=== PATIENT | male | born 1995 | race Caucasian/White ===

== ENCOUNTER 2020-12-05 16:42 | Emergency (ER) | payer OTHER ==
[~2020-12-05] VITALS: Ht 180.3 cm; Wt 76.5 kg
--- NOTE | 2020-12-05 17:28 | PHYS DOC ---
General Adult EDM: Chief Complaint: CHEST PAIN HPI: HPI: Patient is a 24-year-old male who presents to the emergency department for chest pain that started at 1230 today while at work. He stated that he was short of breath with the chest pain lasted approximately 30 minutes to 1 hour. It was midsternal and stabbing. It did not radiate. It is worse with movement. He states that he does not have any chest pain currently. He denies shortness of breath, nausea, vomiting, dizziness or lightheadedness, cough, fever. Patient was seen at Dr. Mujica's office and they sent him to the emergency department for evaluation and also notified him that his blood pressure was high. Patient has on a Holter monitor placed by Dr. Mujica for which he states is for his hypertension so that they can manage his medications better. Patient has a history of cardiomegaly and hypertension but does not take any medications currently. (VICKIE SYED APRN) Review of Systems: Review of Systems: 14 body systems of the review of systems have been reviewed. See HPI for pertinent positive and negative responses, otherwise all other systems are negative, nonpertinent or noncontributory (VICKIE SYED APRN) Physical Exam: PE: Constitutional: Well developed, well nourished, no acute distress, non-toxic appearance. [] HENT: Normocephalic, atraumatic Eyes: PERRL, EOMI, conjunctiva normal, no discharge. [] Neck: Normal range of motion, no stridor Cardiovascular:Heart rate regular rhythm, no murmur [] Lungs & Thorax: Bilateral breath sounds clear to auscultation [] Abdomen: Bowel sounds normal, soft, no tenderness, no masses, no pulsatile masses. [] Skin: Warm, dry, no erythema, no rash. [] Back:Normal ROM Extremities: No tenderness, no cyanosis, no clubbing, ROM intact, no edema. [] Neurologic: Alert and oriented X 3, normal motor function, normal sensory function, no focal deficits noted. [] Psychologic: Affect normal, judgement normal, mood normal. [] (VICKIE SYED APRN) Current Patient Data: Labs: Laboratory Tests Test 12/05/20 17:56 White Blood Count 14.7 x10^3/uL Red Blood Count 5.81 x10^6/uL Hemoglobin 16.5 g/dL Hematocrit 49.8 % Mean Corpuscular Volume 86 fL Mean Corpuscular Hemoglobin 29 pg Mean Corpuscular Hemoglobin Concent 33 g/dL Red Cell Distribution Width 14.1 % Platelet Count 211 x10^3/uL Neutrophils (%) (Auto) 80 % Lymphocytes (%) (Auto) 10 % Monocytes (%) (Auto) 10 % Eosinophils (%) (Auto) 0 % Basophils (%) (Auto) 0 % Neutrophils # (Auto) 11.7 x10^3uL Lymphocytes # (Auto) 1.5 x10^3/uL Monocytes # (Auto) 1.4 x10^3/uL Eosinophils # (Auto) 0.0 x10^3/uL Basophils # (Auto) 0.0 x10^3/uL Sodium Level 142 mmol/L Potassium Level 3.7 mmol/L Chloride Level 105 mmol/L Carbon Dioxide Level 24 mmol/L Anion Gap 13 Blood Urea Nitrogen 17 mg/dL Creatinine 0.9 mg/dL Estimated GFR (Cockcroft-Gault) 103.7 BUN/Creatinine Ratio 19 Glucose Level 93 mg/dL Calcium Level 9.8 mg/dL Total Bilirubin 0.4 mg/dL Aspartate Amino Transf (AST/SGOT) 16 U/L Alanine Aminotransferase (ALT/SGPT) 24 U/L Alkaline Phosphatase 52 U/L Troponin I Quantitative < 0.017 ng/mL Total Protein 8.2 g/dL Albumin 4.9 g/dL Albumin/Globulin Ratio 1.5 Vital Signs: Vital Signs Date Time Temp Pulse Resp B/P (MAP) Pulse Ox O2 Delivery O2 Flow Rate FiO2 12/05/20 17:00 99.3 94 15 155/92 (113) 98 Room Air (VICKIE SYED [employer]) EKG: EKG: EKG performed by ER staff at 1650 shows sinus rhythm, no STEMI read by Dr. Page at 1655 [] (VICKIE SYED APRN) Radiology/Procedures: Radiology/Procedures: []PROCEDURE: PORTABLE CHEST 1V EXAM: AP View of the chest DATE: 12/05/2020 5:26 PM INDICATION: Reason: CHEST PAIN / Spl. Instructions: / History: COMPARISON: No Prior FINDINGS: The heart is not enlarged. Mediastinal and hilar contours are normal. Patchy opacities peripheral left lower lung and right lung base. No pleural effusion or pneumothorax. IMPRESSION: Bilateral parenchymal opacities likely consolidative process such as pneumonia. Imaging follow-up to resolution is recommended. Electronically signed by: Abdulaziz Linares MD (12/05/2020 5:36 PM) [facility] DICTATED AND SIGNED BY: ABDULAZIZ LINARES MD DATE: 12/05/20 5502 CC: EMERGENCY,DEPARTMENT; VICKIE SYED APRN; ROSIBEL MUJICA MD ~MTH0 0 (VICKIE SYED APRN) Heart Score: C/O Chest Pain: Yes HEART Score for Chest Pain: HEART Score for Chest Pain Response (Comments) Value History Moderately Suspicious 1 ECG Normal 0 Age < 45 0 Risk Factors 1 or 2 Risk Factors 1 Troponin < Normal Limit 0 Total 2 Risk Factors: Risk Factors: DM, Current or recent (<one month) smoker, HTN, HLP, family history of CAD, obesity. Risk Scores: Score 0 - 3: 2.5% MACE over next 6 weeks - Discharge Home Score 4 - 6: 20.3% MACE over next 6 weeks - Admit for Clinical Observation Score 7 - 10: 72.7% MACE over next 6 weeks - Early Invasive Strategies (VICKIE SYED APRN) Course & Med Decision Making: Course & Med Decision Making Pertinent Labs and Imaging studies reviewed. (See chart for details) presents to the emergency department for chest pain. Work-up in the ER consisted of blood work, EKG, chest x-ray. Patient is not having any pain while in the ER. Patient was noted to have leukocytosis with a white blood cell count of 14.7. His chest x-ray showed bilateral lung base pneumonia. His troponin was negative, negative CMP. His heart score is 2. Patient be treated with antibiotics for his pneumonia. His heart rate is regular rate and his blood pressure is 160/94. Patient advised to follow-up with his primary care provider. I discussed with patient all findings and diagnostic testing as well as the need to follow-up with PCP for further evaluation and treatment or return to the ER if any new or worsening symptoms. Strict return precautions were also discussed at length. Patient voiced understanding and agreement with the plan. Patient is hemodynamically stable at the time of disposition. (VICKIE SYED APRN) Dragon Disclaimer: Dragon Disclaimer: This electronic medical record was generated, in whole or in part, using a voice recognition dictation system. (VICKIE SYED APRN) Attending Co-Sign The patient was seen and interviewed as well as examined at the bedside. The chart was reviewed. The case was discussed. Agree with the plan of care. (BELKIS BRANNON DO) Departure Departure: Impression: Primary Impression: Pneumonia Qualified Codes: J18.9 - Pneumonia, unspecified organism Disposition: HOME / SELF CARE / HOMELESS Condition: GOOD Referrals: ROSIBEL MUJICA MD (PCP) Patient Instructions: Chest Pain (Nonspecific), Pneumonia, Adult Additional Instructions: You were seen in the emergency department today for chest pain. Your reported resolution of your chest pain upon ER arrival. At this time, your evaluation in the ER did not indicate that you are currently having acute coronary syndrome. Your blood work was unremarkable other than an elevated white blood cell count due to your pneumonia that was seen on your chest x-ray. You will be treated with an antibiotic and you were given your first dose in the ER. Please start and finish it completely. Please follow-up with Dr. Mujica tomorrow regarding your ER visit. Return to the emergency department if you develop chest pain, shortness of breath, nausea or vomiting, dizziness or lightheadedness, high fe vers refractory to treatment. EMERGENCY DEPARTMENT GENERAL DISCHARGE INSTRUCTIONS Thank you for coming to [facility] (ED) today and trusting us with you care. We trust that you had a positivie experience in our Emergency Department. If you wish to speak to the department management, you may call the director at [phone]. YOUR FOLLOW UP INSTRUCTIONS ARE FOLLOWS: 1. Do you have a private Doctor? If you do not have a private doctor, please ask for a resource list of physicians or clinics that may be able to assist you with follow up care. 2. The Emergency Physician has interpreted your x-rays. The X-Ray specialist will also review them. If there is a change in the findings, you will be notified in 48 hours when at all possible. 3. A lab test or culture has been done, your results will be reviewed and you will be notified if you need a change in treatment. ADDITIONAL INSTRUCTIONS AND INFORMATION: 1. Your care today has been supervised by a physician who is specially trained in emergency care. Many problems require more than one evaluation for a complete diagnosis and treatment. We recommend that you schedule your follow up appointment as recommended to ensure complete treatment of you illness or injury. If you are unable to obtain follow up care and continue to have a problem, or if your condition worsens, we recommend that you return to the ED. 2. We are not able to safely determine your condition over the phone nor are we able to give sound medical advice over the phone. For these safety reasons, if you call for medical advice we will ask you to come to the ED for further evaluation. 3. If you have any questions regarding these discharge instructions please call the ED at [phone]. SAFETY INFORMATION: In the interest of safety, wellness, and injury prevention; we encourage you to wear your sealbelt, if you smoke; quite smoking, and we encourage family to use a protective helmet for bicycling and other sporting events that present an increased risk for head injury. IF YOUR SYMPTOMS WORSEN OR NEW SYMPTOMS DEVELOP, OR YOU HAVE CONCERNS ABOUT YOUR CONDITION; OR IF YOUR CONDITION WORSENS WHILE YOU ARE WAITING FOR YOUR FOLLOW UP APPOINTMENT; EITHER CONTACT YOUR PRIMARY CARE DOCTOR, THE PHYSICIAN WHOSE NAME AND NUMBER YOU WERE GIVEN, OR RETURN TO THE ED IMMEDIATELY. Scripts Azithromycin (AZITHROMYCIN TABLET) 250 Mg Tablet 1 PKG PO UD for pneumonia for 5 Days, #5 TAB 0 Refills 1 for days 2-5 Prov: VICKIE SYED APRN 12/05/20 VICKIE SYED APRN Dec 05, 2020 17:28 BELKIS BRANNON DO Dec 06, 2020 05:56
--- NOTE | 2020-12-05 17:38 | RAD ---
EXAM: AP View of the chest DATE: 12/05/2020 5:26 PM INDICATION: Reason: CHEST PAIN / Spl. Instructions: / History: COMPARISON: No Prior FINDINGS: The heart is not enlarged. Mediastinal and hilar contours are normal. Patchy opacities peripheral left lower lung and right lung base. No pleural effusion or pneumothorax. IMPRESSION: Bilateral parenchymal opacities likely consolidative process such as pneumonia. Imaging follow-up to resolution is recommended. Electronically signed by: Abdulaziz Evangelista MD (12/05/2020 5:36 PM) [facility]
--- NOTE | 2020-12-05 17:39 | EKG ---
[address] [address] Test Date: 2020-12-05 Test Time: 16:50:10 Pat Name: BRANDIE DOE Department: Room: Gender: M Maintainer Central Office: TINY : 1995 Requested By: VICKIE SYED Order Number: [id number] Reading MD: Preston Hwang MD Measurements Intervals [place] Rate: 79 P: 52 [place]: 136 QRS: 69 QRSD: 90 T: 47 QT: 340 QTc: 391 Interpretive Statements SINUS RHYTHM Electronically Signed On 12-06-2020 17:31:46 CDT by Preston Hwang MD
[2020-12-05 18:26] LABS: BASO % 0 % (0-3); CALCIUM 9.8 mg/dL (8.5-10.1); CREATININE 0.9 mg/dL (0.7-1.3); EOS % 0 % (0-3); GFR 103.7; HEMATOCRIT 49.8 % (39.0-53.0); HEMOGLOBIN 16.5 g/dL (13.0-17.5); LYMPH # 1.5 x10^3/uL (1.0-4.8); LYMPH % 10 % (24-48); MEAN CORPUSCULAR HEMOGLOBIN 29 pg (25-35); MEAN CORPUSCULAR HGB CONC 33 g/dL (31-37); MEAN CORPUSCULAR VOLUME 86 fL (79-100); MONO # 1.4 x10^3/uL (0.0-1.1); MONO % 10 % (0-9); NEUT # 11.7 x10^3uL (1.8-7.7); NEUT % 80 % (31-73); PLATELET COUNT 211 x10^3/uL (140-400); POTASSIUM 3.7 mmol/L (3.5-5.1); RED BLOOD COUNT 5.81 x10^6/uL (4.30-5.70); RED CELL DISTRIBUTION WIDTH 14.1 % (11.5-14.5); WHITE BLOOD COUNT 14.7 x10^3/uL (4.0-11.0)
[2020-12-05 18:32] LABS: ALBUMIN 4.9 g/dL (3.4-5.0); ALBUMIN/GLOBULIN RATIO 1.5 (1.0-1.7); TOTAL BILIRUBIN 0.4 mg/dL (0.2-1.0); TOTAL PROTEIN 8.2 g/dL (6.4-8.2)
[2020-12-05] MEDS ORDERED: AZITHROMYCIN 250 MG TABLET. PO ONE (19:00)
[2020-12-05 19:08] VITALS: BP 156/105
[2020-12-05] MEDS ORDERED: AZIT250T6 PO (19:10)
== END 2020-12-05 19:20 | disposition home or self-care (01) ==
LOC: ER 16:42
DX: J18.9 Pneumonia, unspecified organism (principal); Z20.822 Contact with and (suspected) exposure to COVID-19
CPT/HCPCS: 36415; 71045; 80053; 84484; 85025; 93005; 99285; C9803; U0003

== ENCOUNTER → 2020-12-07 | Outpatient (CLI) | payer OTHER ==
[2020-12-05 19:08] VITALS: BP 156/105
[~2020-12-07] MED LIST: AZIT250T6 PO; IOHEXOL 350 MG/ML 100 ML VIAL. ONE
[2020-12-07] MEDS: IOHEXOL 350 MG/ML 100 ML VIAL. IV ONE (16:34)
--- NOTE | 2020-12-07 16:53 | RAD ---
CTA CHEST History: Chest pain for 2 days. Increased blood pressure, short of air. Rule out PE. Comparison: None. Technique: CTA of the pulmonary arteries with intravenous contrast. 3-D postprocessing was performed. Findings: Pulmonary arteries: No pulmonary embolism Aorta and great vessels: No aneurysm or dissection of the aortic arch or thoracic aorta. Thyroid: No significant abnormalities. Mediastinum and dhruv: No mediastinal masses or adenopathy is seen. Esophagus: The visualized esophagus is normal. Heart: The heart is normal in size. There is no pericardial effusion. Airways, Lungs, Pleura: Airways clear. No airspace consolidation, pleural effusion or pneumothorax. Upper abdomen: Limited evaluation of the upper abdomen is unremarkable. Osseous structures and soft tissues: Within normal limits for age. Impression: 1. No pulmonary embolism, aortic aneurysm or aortic dissection. 2. No airspace consolidation. ------ Exposure: One or more of the following individualized dose reduction techniques were utilized for thi s examination: 1. Automated exposure control 2. Adjustment of the mA and/or kV according to patient size 3. Use of iterative reconstruction technique. Electronically signed by: Fabricio Valdovinos MD (12/07/2020 4:51 PM) [id number]
== END ==
LOC: CT 16:22
PROVIDERS: ATTEND Family Medicine
DX: R07.2 Precordial pain (principal)
CPT/HCPCS: 71275; Q9967